=== PATIENT | female | born 1945 | race Caucasian/White ===

== ENCOUNTER 2022-12-09 19:05 | Emergency (ER) | payer MEDICARE, MEDICAID, SELFPAY ==
--- NOTE | ~2022-12-09 | CT_ITS ---
EXAMINATION: CT brain wo con DATE: 12/09/2022 19:53 INDICATION: Status post fall. TECHNIQUE: Computed tomography (CT) of the head was performed without intravenous contrast. The dose- length product was 1210.67 mGy-cm. Automated exposure control and iterative reconstruction technique were employed. COMPARISON: None FINDINGS: Study limited by motion artifact. Generalized atrophy. There are scattered mild periventric ular and subcortical white matter changes, most likely related to small vessel ischemic disease (micr oangiopathy). There are chronic right lacunar infarctions. There is intracranial atherosclerosis. No acute infarction, mass or mass effect. Paranasal sinuses and mastoids are pneumatized. IMPRESSION: 1. No acute intracranial abnormality. 2: Chronic right lacunar infarctions. 3: Chronic age-related findings. Reviewed, dictated and finalized at location A.
[2022-12-09 19:04] VITALS: PULSE 105; RESP 15; TEMP 36.9; O2SAT 96
--- NOTE | 2022-12-09 19:32 | ED.GENADULT ---
HPI - General Adult General Chief complaint: Fall Stated complaint: SLID OUT OF BED X 2 History of Present Illness HPI narrative: 77-year-old female presented emergency department for evaluation after having a fall from bed. Patient states that she slipped from bed but denies any pain or injury. Patient states did not strike her head had no loss of consciousness. Patient had been complaining to EMS that she was having buttock pain. On examination here patient denies any back or buttock pain and has no tenderness to palpation. Patient denies any current pain or injury. Patient is alert and oriented at her baseline. Review of Systems Review of Systems: All systems reviewed & are unremarkable except as noted in HPI and below Exam Narrative: APPEARANCE: Well appearing, no pain, no distress, well-nourished. HEAD: normocephalic, atraumatic. EYES: PERRLA/EOMI, conjunctivae clear. NECK: Supple. No adenopathy, no masses. RESPIRATORY: Airway patent, respirations nonlabored. Clear to auscultation bilaterally, no rales, rhonchi, wheezing. CARDIOVASCULAR: Regular rate and rhythm without murmurs rubs or gallops. ABDOMINAL: Soft, nontender, nondistended, normal bowel sounds MUSCULOSKELETAL: Moves all extremities. Strength/ROM intact, No edema, No calf tenderness. No midline back tenderness to palpation NEURO: Alert. Cranial nerves II through XII intact. Good gait. Good coordination SKIN: Warm, dry. Normal Color Course Course Emergency Course: 77-year-old female presented the ED for evaluation after having a ground-level fall. Patient denies any pain or complaint. Fall was unwitnessed. Head CT was ordered to evaluate for intracranial injury. Head CT was negative and showed no acute abnormality. Patient and care facility were updated on the results of the CT scan. Patient will be transferred back to her care facility. All questions concerns were addressed. Patient was resting comfortably at time of discharge. Vital Signs Vital signs: Vital Signs Temperature 98.5 F 12/09/22 19:04 Pulse Rate 105 H 12/09/22 19:04 Respiratory Rate 15 12/09/22 19:04 Pulse Oximetry 96 12/09/22 19:04 Oxygen Delivery Room Air 12/09/22 19:04 Temperature 98 F 12/09/22 20:23 Pulse Rate 89 12/09/22 20:23 Respiratory Rate 18 12/09/22 20:23 Blood Pressure 123/90 12/09/22 20:23 Pulse Oximetry 99 12/09/22 20:23 Oxygen Delivery Room Air 12/09/22 19:04 Medical Decision Making Vital Signs Vital Signs: Vital Signs Temperature 98.5 F 12/09/22 19:04 Pulse Rate 105 H 12/09/22 19:04 Respiratory Rate 15 12/09/22 19:04 Pulse Oximetry 96 12/09/22 19:04 Oxygen Delivery Room Air 12/09/22 19:04 Temperature 98 F 12/09/22 20:23 Pulse Rate 89 12/09/22 20:23 Respiratory Rate 18 12/09/22 20:23 Blood Pressure 123/90 12/09/22 20:23 Pulse Oximetry 99 12/09/22 20:23 Oxygen Delivery Room Air 12/09/22 19:04 Imaging Data Radiologist's impression: Impressions Head CT 12/09/22 19:54 IMPRESSION: 1. No acute intracranial abnormality. 2: Chronic right lacunar infarctions. 3: Chronic age-related findings. Discharge Plan Discharge Clinical Impression: Unwitnessed fall Patient Disposition: Home, Self-Care Condition: Stable Instructions: Antibiotic Form, Head Injury (ED) Additional Instructions: Have close follow-up with your primary care physician. If you have any worsening symptoms then please call or return to the emergency department. Follow-up/Referrals: Lincoln,MD Jeremi [Primary Care Provider] -
[2022-12-09 20:23] VITALS: BP 123/90; PULSE 89; RESP 18; TEMP 36.6; O2SAT 99
[2022-12-09 22:14] VITALS: BP 111/89; PULSE 70; RESP 18; TEMP 36.6; O2SAT 99
== END 2022-12-09 22:14 | disposition home or self-care (01) ==
PROVIDERS: Emergency Provider Emergency Medicine; PCP Internal Medicine
DX: Z04.3 Encounter for examination and observation following other accident (principal); W06.XXXA Fall from bed, initial encounter
CPT/HCPCS: 70450; 99284

== ENCOUNTER 2024-02-27 14:02 | Emergency (ER) | payer MEDICARE, MEDICAID, SELFPAY ==
--- NOTE | ~2024-02-27 | CT_ITS ---
EXAMINATION: CT thoracic lumbar wo con DATE: 02/27/2024 17:29 INDICATION: Back pain. TECHNIQUE: Computed tomography (CT) of the thoracic and lumbar spine was performed without intravenou s contrast. Automated exposure control and iterative reconstruction technique were employed. The dose -length product was 679.20 mGy-cm. COMPARISON: None FINDINGS: CT THORACIC SPINE: There is a 5 mm stone in left kidney. There is a 3.1 cm cyst in left kidney. There is 6 degrees dextrocurvature of thoracic spine. There is mild chronic anterior wedging of T5, T6, T7 , T8, T9, T10, and T11 vertebral bodies. There is multilevel decreased disc height, severe from T5-T6 through T9-T10. There is multilevel facet joint osteoarthritis, severe at multiple levels. There is multilevel mild neural foraminal stenosis bilaterally. On the right, there is moderate neural frontal stenosis at T9-T10. In the left, there is moderate neural foraminal stenosis at T9-T10. There is mil d central canal stenosis from T5-T6 through T12-L1. CT LUMBAR SPINE: There is 9 degrees dextrocurvature of lumbar spine. There is 4 mm anterolisthesis of L4 on L5 and 8 mm anterolisthesis of L5 on S1. Vertebral body heights are normal. There is mildly de creased disc height from L1-L2 through L3-L4, moderately decreased disc height at L4-L5, and severely decreased disc height at L5-S1. There are chronic bilateral L5 pars defects. The following disc leve ls are specifically discussed: L1-L2: The disc is bulging. There is severe bilateral facet joint osteoarthritis. There is mild bilat eral neural foraminal stenosis. There is mild central canal stenosis. L2-L3: The disc is bulging. There is severe right and moderate left facet joint osteoarthritis. There is mild right and moderate left neural foraminal stenosis. There is mild central canal stenosis. L3-L4: The disc is bulging. There is severe right and moderate left facet joint osteoarthritis. There is mild bilateral neural foraminal stenosis. There is mild central canal stenosis. L4-L5: The disc is bulging. There is severe bilateral facet joint osteoarthritis. There is moderate b ilateral neural foraminal stenosis. There is mild central canal stenosis. L5-S1: The disc is bulging. There is severe bilateral facet joint osteoarthritis. There is moderate b ilateral neural foraminal stenosis. There is mild central canal stenosis. IMPRESSION: 1. Chronic bilateral L5 pars defects with grade 1 anterolisthesis of L5 on S1. 2. Severe thoracic and lumbar spondylosis. Reviewed, dictated and finalized at location E.
--- NOTE | ~2024-02-27 | XR_ITS ---
EXAMINATION: XR shoulder RT min 2V DATE: 02/27/2024 17:44 INDICATION: Right shoulder pain. TECHNIQUE: 3 views of right shoulder were obtained. COMPARISON: None. FINDINGS: Bone alignment is normal. No fracture. There is mild osteoarthritis of glenohumeral joint a nd moderate osteoarthritis of acromioclavicular joint. IMPRESSION: 1. Polyarticular osteoarthritis. Reviewed, dictated and finalized at location E.
[2024-02-27 16:09] VITALS: BP 135/80; PULSE 60; RESP 20; TEMP 36.7; O2SAT 97
--- NOTE | 2024-02-27 17:12 | ED.EXTPRO ---
HPI - Extremity Problem General Chief complaint: Extremity Problem,Nontraumatic Stated complaint: R arm pain Time Seen by Provider: 02/27/24 17:01 History of Present Illness HPI Narrative: 8-year-old female presents to the emergency department via EMS from [facility] for shoulder pain. Per triage note, patient reports she noticed her right shoulder hurting after she slept on it. Upon my evaluation she is complaining of pain to her right shoulder and pain throughout her mid and low back. States this is new. She denies known injury or trauma. She believes her shoulder hurts from sleeping on it. She is a poor historian secondary to dementia. She is A&O x2. She denies saddle anesthesia, bowel or bladder incontinence, fever, other injuries or trauma. She denies recent fall. She is not anticoagulated. patient's right upper and lower eyelid also found to be erythematous. She is reporting discomfort to the lateral canthus. He denies vision changes or pain with EOMs. Related Data Allergies Allergy/AdvReac Type Severity Reaction Status Date / Time ampicillin Allergy Unknown Verified 02/27/24 16:15 Review of Systems Review of Systems: CONSTITUTIONAL: Denies fever, chills, or sweats. EYES: Denies visual changes, redness, or discharge. ENT: Denies rhinorrhea, congestion, sore throat, or otalgia. CARDIOVASCULAR: Denies chest pain, palpitations, or edema. RESPIRATORY: Denies cough or dyspnea. GASTROINTESTINAL: Denies abdominal pain, nausea, vomiting, or diarrhea. GENITOURINARY: Denies dysuria or hematuria. SKIN: Denies rash or itching. MUSCULOSKELETAL: See HPI NEUROLOGIC: Denies headache, numbness, or weakness. PSYCHIATRIC: Denies anxiety or depression. Exam Narrative: GENERAL: Well-appearing, well-nourished, and in no acute distress. HEAD: Normocephalic, atraumatic. EYES: PERRLA and EOMI. Erythema to the upper and lower right eyelids. No warmth. Conjunctiva mildly injected. No proptosis, no pain with EOMs. No vision changes ENT: Nares clear, no rhinorrhea or epistaxis. Mucous membranes moist. NECK: Supple. no midline cervical spinous tenderness, step-offs or deformities BACK: tenderness to the T8 region without overlying step-offs, crepitus or deformities. Minimal tenderness throughout the lumbar spine without crepitus, step-offs or deformities. CHEST: Clear to auscultation. No respiratory distress. HEART: Regular rate and rhythm. No murmur heard. Normal peripheral pulses. ABDOMEN: Soft, nontender, nondistended, normal active bowel sounds. EXTREMITIES: RUE: Generalized tenderness throughout the right shoulder without obvious deformity. Full active and passive range of motion, worsening pain with abduction and flexion. No overlying warmth or erythema. Radial pulse 2 +. Sensation intact. Axillary, median and radial nerves are intact. No tenderness remainder of upper or lower extremities. SKIN: Warm, dry, no rash. NEURO: No focal deficits. Alert and oriented x2. No saddle anesthesia. BLE strength 5/5 bilaterally including knee flexion and extension, hip flexion extension, dorsiflexion and extension. Sensation intact throughout. Moving all extremities spontaneously. Course Course Emergency Course: I contacted patient's [facility] and spoke to Will who states patient is at her baseline mental status which is A&O x2. States patient was sent here for a TIA workup. When I asked what the concern was for a TIA, Will stated that the patient has been complaining of R arm pain today and therefore not using her arm. Also states patient had eye issues, and when I asked further , she was relating to the redness to patient's eyelids. Will stated that the patient's daughter, Corinne, was concerned for a TIA. I contacted patient's daughter Corinne who states affirmed the above. Stated she wanted to ensure the patient was not having a TIA given she was not using her arm due to shoulder pain. I discussed that she was likely n
--- NOTE | 2024-02-27 17:23 | ECG_ITS ---
Test Date: 2024-02-27 18:00:52 Measurements Intervals [place] Rate: 59 P: 29 PA: 178 QRS: 15 QRSD: 126 T: -72 QT: 482 QTc: 479 Interpretive Statements SINUS BRADYCARDIA VENTRICULAR TRIGEMINY LEFT BUNDLE BRANCH BLOCK BASELINE ARTIFACT- I, II, III, AVR, AVL, AVF, V1-V6 ABNORMAL ECG No previous ECG available for comparison Electronically Signed On 02-29-2024 11:00:57 CDT by Basil Acosta D.O.
[2024-02-27 18:17] LABS: Basophils Percent Auto 0.5 % (0.2-1.2); Eosinophils Absolute Auto 0.1 K/mm3 (0-0.3); Eosinophils Percent Auto 1.3 % (0-4.4); Hemoglobin 13.8 g/dL (12.0-15.0); Immature Granulocyte Absolute 0.07 K/mm3 (0.00-0.031); Immature Granulocyte Percent A 0.8 % (0-0.5); Lymphocytes Absolute Auto 1.75 K/mm3 (0.9-3.2); Lymphocytes Percent Auto 21.2 % (18.3-44.2); Mean Corpuscular HGB Conc 33.7 g/dl (32-36); Mean Corpuscular Hemoglobin 29.6 pg (26-34); Mean Corpuscular Volume 87.8 fl (80-100); Mean Platelet Volume 11.4 fl (7.4-10.4); Monocytes Absolute Auto 0.7 K/mm3 (0.1-0.6); Monocytes Percent Auto 7.9 % (2.6-8.5); Neutrophils Absolute Auto 5.6 K/mm3 (1.3-6.7); Neutrophils Percent Auto 68.3 % (45.5-73.1); Platelet Count Result 288 k/mm3 (150-375); Red Blood Count 4.67 M/mm3 (4.2-5.4); Red Cell Distribution Width 13.2 % (11.5-14.5); White Blood Count 8.2 K/mm3 (4.5-10.0)
[2024-02-27] MEDS: ACETAMINOPHEN 325 MG TABLET 650 MG PO (18:21)
[2024-02-27 18:35] LABS: Appearance Urine Cloudy (Clear); Bacteria Urine None Seen /hpf; Bilirubin Urine Negative (Negative); Blood Urine Negative (Negative); Color Urine Dark Yellow (Yellow); Glucose Urine UA Negative (Negative); Ketones Urine Trace mg/dL (Negative); Leukocyte Esterase Ur 1+ LEU/UL (Negative); Need Manual Microscopic Reviewed; Nitrate Urine Negative (Negative); Protein Urine 1+ mg/dL (Negative); Squamous Epithelial Cell Urine None Seen /hpf (Few); pH Urine 5.5 (5.0-9.0)
[2024-02-27 18:36] LABS: Anion Gap 12 mmol/L (4-12); Blood Urea Nitrogen 14 mg/dL (7-17); Carbon Dioxide 22 mmol/L (22-30); Chloride 105 mmol/L (98-107); Estimated Glomerular Filt Rate > 60; Glucose 104 mg/dL (65-110); Potassium 3.2 mmol/L (3.4-5.0); Sodium 139 mmol/L (137-145)
[2024-02-27 18:40] LABS: Add Urine Microscopic? YES
[2024-02-27] MEDS: POTASSIUM CHLORIDE 20 MEQ PACKET (FOR LIQUID) 40 MEQ PO (18:44)
[2024-02-27 20:15] LABS: Troponin I < 0.012 ng/mL (0.000-0.034)
[2024-02-27 21:00] VITALS: BP 129/85; PULSE 71; RESP 19; O2SAT 98
--- NOTE | 2024-02-27 21:23 | PC.NURSE ---
gave report to ENZO Mcallitser at [facility] at 2104 and updated daughter of patient at 2109
== END 2024-02-27 23:10 ==
PROVIDERS: Emergency Provider Physician Assistant; PCP Internal Medicine
DX: M25.511 Pain in right shoulder (principal); H01.00A Unspecified blepharitis right eye, upper and lower eyelids; R82.998 Other abnormal findings in urine; F03.90 Unspecified dementia, unspecified severity, without behavioral disturbance, psychotic disturbance, mood disturbance, and anxiety
CPT/HCPCS: 36415; 72128; 72131; 73030; 80048; 81001; 83735; 84484; 85025; 87086; 93005; 99284; A9270

== ENCOUNTER 2024-06-22 16:10 | Emergency (ER) | payer MEDICARE, MEDICAID, SELFPAY ==
--- NOTE | ~2024-06-22 | CT_ITS ---
CT brain wo con Ordering provider: Hussain Miguel PA-C History: 79 years Female with . rule out bleed . Comparison: None. Technique: CT of the head without contrast. Radiation reduction technique utilized. The dose-length product was 2515.33 mGy-cm. FINDINGS: images are suboptimal to be appropriately evaluated due to motion artifacts.. BRAIN PARENCHYMA AND CSF SPACES: Mild leukoaraiosis and diffuse cortical atrophy. Mild atheromatous d isease. No gross hemorrhage is seen. VISUALIZED PARANASAL SINUSES: Well aerated. MASTOIDS: Well aerated. BONES: The visualized bones appear intact. SOFT TISSUES: Visualized nasopharynx is normal. Superficial soft tissues are normal. IMPRESSION: No gross acute intracranial hemorrhage. Reviewed, dictated and finalized at location A.
[2024-06-22 16:15] VITALS: BP 140/60; PULSE 68; RESP 17; TEMP 36.6; O2SAT 100
--- NOTE | 2024-06-22 18:17 | ED_ITS ---
HPI - Weakness General Chief complaint: Weakness Stated complaint: lethargy Time Seen by Provider: 06/22/24 18:06 Source: patient Mode of arrival: ambulatory Limitations: no limitations History of Present Illness HPI Narrative: This is an 79-year-old female who presents to the ED via EMS for complaints of lethargy from the [facility]. Reports she is normally alert oriented x1 and EMS states that this is her baseline. However the [facility] thought she was very tired, fatigued and lethargic especially after eating lunch today. Nursing staff reports that the [facility] was concerned for possible bug going around. Patient is unable to give me any reliable or meaningful history. However when I ask if she is in pain she says no. She does respond to her name and follows commands. Related Data Allergies Allergy/AdvReac Type Severity Reaction Status Date / Time ampicillin Allergy Unknown Verified 02/27/24 16:15 Review of Systems Review of Systems: All systems as dictated in HPI Exam Narrative: GENERAL: Well-appearing, well-nourished, and in no acute distress. HEAD: Normocephalic, atraumatic. EYES: PERRLA and EOMI. ENT: Nares clear, no rhinorrhea or epistaxis. Mucous membranes moist. Oropharynx without tonsillar hypertrophy exudate or other lesions. NECK: Supple. No adenopathy or masses. CHEST: No respiratory distress. Clear to auscultation. No wheezes rales or rhonchi HEART: Regular rate and rhythm. No murmur heard. Normal peripheral pulses. ABDOMEN: Soft, nontender, nondistended, normal active bowel sounds. MSK: Normal range of motion. No edema. SKIN: Warm, dry, no rash. NEURO: Alert and oriented x1. No focal deficits. Responds to her name. Follows basic commands. Moves all extremities spontaneously PSYCH: Normal mood and affect. Course Course Emergency Course: Spoke with family member, daughter Corinne. He does explain the patient is alert oriented x1 normally. It would appear that she is most likely at her mental status baseline from what she knows about the visit today. She does tell me that patient is DNR DNI. She is fine with patient being transferred back to [facility] as long as we do not find anything major today. Vital Signs Vital signs: Vital Signs Temperature 97.8 F 06/22/24 16:15 Pulse Rate 68 06/22/24 16:15 Respiratory Rate 17 06/22/24 16:15 Blood Pressure 140/60 06/22/24 16:15 Pulse Oximetry 100 06/22/24 16:15 Oxygen Delivery Room Air 06/22/24 16:15 Temperature 97.6 F 06/22/24 21:05 Pulse Rate 68 06/22/24 21:05 Respiratory Rate 20 06/22/24 21:05 Blood Pressure 141/75 H 06/22/24 21:05 Pulse Oximetry 100 06/22/24 21:05 Oxygen Delivery Room Air 06/22/24 16:15 MDM - Weakness MDM Narrative Medical decision making narrative: This is a 79 yo female who presents to the ED for chief complaint of fatigue, possible lethargy today. She is alert and oriented times wanted now her baseline. Vitals are normal. Exam remarkable for the above. No abdominal tenderness. No flank tenderness. No significant alteration in mentation. Was able to get in contact with family who do feel that she is probably at her baseline. Lab work shows mild hypokalemia and evidence of possible UTI. She is able to take medications by mouth. CT brain shows no acute findings. Rx for cephalexin given. She was given dose of antibiotics and potassium here. Family is good with patient being discharged back to [facility] today. Patient will be discharged in stable condition. Supportive measures discussed and return precautions given. Patient's family is understanding and agreeable with plan for discharge with PCP follow-up. Lab Data 06/22/24 18:53 06/22/24 18:53 Labs: Lab Results 06/22/24 06/22/24 Range/Units 18:53 19:26 WBC 7.5 (4.5-10.0) K/mm3 RBC 4.91 (4.2-5.4) M/mm3 Hgb 14.4 (12.0-15.0) g/dL Hct 42.1 (37.0-47.0) % MCV 85.7 (80-100) fl MCH 29.3 (26-34) pg MCHC 34.2 (32-36) g/dl RDW 13.3 (11.5-14.5) % Plt Count 239 (150-375) k/mm3 MPV 11.5 H (7.4-10.4) fl Immature Gran % (Auto) 0.1 (0-0.5) % Neut % (Auto) 69.6 (45.5-73.1) % Lymph % (Auto) 23.1 (18.3-44.2) % [place] % (Auto) 5.1 (2.6-8.5) % Eos % (Auto) 1.7 (0-4.4) % Baso % (Auto) 0.4 (0.2-1.2) % Lymph # (Auto) 1.72 (0.9-3.2) K/mm3 [place] # (Auto) 0.4 (0.1-0.6) K/mm3 Eos # (Auto) 0.1 (0-0.3) K/mm3 Baso # (Auto) 0.0 (0.0-0.1) K/mm3 Abs Immat Gran (auto) 0.01 (0.00-0.031) K/mm3 Absolute Neuts (auto) 5.2 (1.3-6.7) K/mm3 Absolute Nucleated RBC 0.000 (0.0-0.012) K/mm3 Nucleated RBC % 0.0 (0.0-0.2) % Sodium 140 (137-145) mmol/L Potassium 3.1 L (3.4-5.0) mmol/L Chloride 102 (98-107) mmol/L Carbon Dioxide 30 (22-30) mmol/L Anion Gap 8 (4-12) mmol/L BUN 11 (7-17) mg/dL Creatinine 0.70 (0.7-1.0) mg/dL Estim Creat Clear Calc Not Reportable Estimated GFR > 60 (59 - ) Glucose 85 (65-110) mg/dL Calcium 8.8 (8.4-10.2) mg/dL Total Bilirubin 1.3 (0.2-1.3) mg/dL AST 79 H (14-36) U/L ALT 61 H (6-35) U/L Alkaline Phosphatase 355 H (38-126) U/L Total Protein 8.0 (6.3-8.2) g/dL Albumin 4.0 (3.5-5.1) g/dL Urine Color Yellow (Yellow) Urine Appearance Turbid H (Clear) Urine pH 7.5 (5.0-9.0) Ur Specific [place] 1.011 (1.001-1.035) Urine Protein Negative (Negative) mg/dL Urine Glucose (UA) Negative (Negative) mg/dL Urine Ketones Trace H (Negative) mg/dL Ur Blood (Man) Negative (Negative) Urine Nitrate Negative (Negative) Urine Bilirubin Negative (Negative) Urine Urobilinogen 1.0 (<2.0) mg/dL Leukocyte Esterase Rfl 2+ H (Negative) YANET/UL Urine RBC 0-2 (0-2) /hpf Urine WBC 6-10 H (0-3) /hpf Ur Squamous Epith Cells None seen (Few) /hpf Urine Bacteria None seen /hpf Urine Casts 0-2 Discharge Plan Discharge Clinical Impression: Urinary tract infection [facility] Condition: Stable Instructions: Antibiotic Form Additional Instructions: Exam and workup today do show evidence of possible UTI. Potassium was slightly low as well. Please follow-up with PCP on these issues. Take antibiotics as prescribed. If you have any new or worsening symptoms please return to the ER for further evaluation. Prescriptions: New cephalexin 500 mg capsule 500 mg PO Q8H 7 Days Qty: 21 0RF No Action erythromycin 5 mg/gram (0.5 %) ointment 1 applic EACH EYE BID 7 Days Qty: 3.5 0RF acetaminophen 500 mg capsule 500 mg PO Q6H PRN (Reason: pain) Qty: 20 0RF Follow-up/Referrals: Lincoln,MD Jeremi [Primary Care Provider] - Stand Alone Forms: Jail Discharge Time of Disposition: 21:19
[2024-06-22 19:06] LABS: Basophils Percent Auto 0.4 % (0.2-1.2); Eosinophils Absolute Auto 0.1 K/mm3 (0-0.3); Eosinophils Percent Auto 1.7 % (0-4.4); Hematocrit 42.1 % (37.0-47.0); Hemoglobin 14.4 g/dL (12.0-15.0); Immature Granulocyte Absolute 0.01 K/mm3 (0.00-0.031); Immature Granulocyte Percent A 0.1 % (0-0.5); Lymphocytes Absolute Auto 1.72 K/mm3 (0.9-3.2); Lymphocytes Percent Auto 23.1 % (18.3-44.2); Mean Corpuscular HGB Conc 34.2 g/dl (32-36); Mean Corpuscular Hemoglobin 29.3 pg (26-34); Mean Corpuscular Volume 85.7 fl (80-100); Mean Platelet Volume 11.5 fl (7.4-10.4); Monocytes Absolute Auto 0.4 K/mm3 (0.1-0.6); Monocytes Percent Auto 5.1 % (2.6-8.5); Neutrophils Absolute Auto 5.2 K/mm3 (1.3-6.7); Neutrophils Percent Auto 69.6 % (45.5-73.1); Platelet Count Result 239 k/mm3 (150-375); Red Blood Count 4.91 M/mm3 (4.2-5.4); Red Cell Distribution Width 13.3 % (11.5-14.5); White Blood Count 7.5 K/mm3 (4.5-10.0)
[2024-06-22 19:59] LABS: Add Urine Microscopic? YES; Appearance Urine Turbid (Clear); Bacteria Urine None Seen /hpf; Bilirubin Urine Negative (Negative); Blood Urine Negative (Negative); Color Urine Yellow (Yellow); Glucose Urine UA Negative (Negative); Ketones Urine Trace mg/dL (Negative); Leukocyte Esterase Ur 2+ LEU/UL (Negative); Nitrate Urine Negative (Negative); Non Pathogenic Casts 0-2; Protein Urine Negative (Negative); RBC Urine 0-2 /hpf (0-2); Specific Grav Ur 1.011 (1.001-1.035); Squamous Epithelial Cell Urine None Seen /hpf (Few); pH Urine 7.5 (5.0-9.0)
[2024-06-22 20:23] LABS: Alanine Aminotransferase 61 U/L (6-35); Alkaline Phosphatase 355 U/L (38-126); Anion Gap 8 mmol/L (4-12); Aspartate Amino Transferase 79 U/L (14-36); Bilirubin,Total 1.3 mg/dL (0.2-1.3); Blood Urea Nitrogen 11 mg/dL (7-17); Calcium 8.8 mg/dL (8.4-10.2); Carbon Dioxide 30 mmol/L (22-30); Chloride 102 mmol/L (98-107); Estimated Glomerular Filt Rate > 60; Glucose 85 mg/dL (65-110); Potassium 3.1 mmol/L (3.4-5.0); Sodium 140 mmol/L (137-145)
[2024-06-22] MEDS: CEPHALEXIN 500 MG CAPSULE PO (21:01)
[2024-06-22] MEDS: POTASSIUM CHLORIDE 20 MEQ ER TABLET 40 MEQ PO (21:01)
[2024-06-22 21:05] VITALS: BP 141/75; PULSE 68; RESP 20; TEMP 36.4; O2SAT 100
[2024-06-22 22:10] VITALS: BP 116/56; PULSE 63; RESP 20; TEMP 36.6; O2SAT 96
== END 2024-06-22 22:50 ==
PROVIDERS: Emergency Provider Physician Assistant; PCP Internal Medicine
DX: N39.0 Urinary tract infection, site not specified (principal)
CPT/HCPCS: 36415; 70450; 80053; 81001; 85025; 87086; 99284; A9270

== ENCOUNTER 2024-12-15 13:17 | Emergency (ER) | payer MEDICARE, MEDICAID, SELFPAY ==
--- NOTE | ~2024-12-15 | XR_ITS ---
XR chest 1V portable Ordering provider: Toi Jj MD History: 79 years Female with . right sided breast mass . Comparison: None. FINDINGS: MEDIASTINUM: The cardiac silhouette is not enlarged. LUNGS: No infiltrates, effusions or pneumothorax. OTHER: No free air under the diaphragm. Degenerative changes of the spine. IMPRESSION: No acute cardiopulmonary pathology. Reviewed, dictated and finalized at location A.
--- NOTE | ~2024-12-15 | CT_ITS ---
CT diagnostic chest w con Ordering provider: Toi Jj MD History: 79 years Female with . right breast mass . Comparison: None. Technique: CT chest with IV contrast. Radiation reduction technique utilized.The dose-length product was 136.89 mGy-cm. 75 mL Omnipaque 350 was given IV. Findings: Right breast mass is seen measuring 4.8 x 6.4x 6.9 cm. Further evaluation is advised. VISUALIZED THORACIC INLET: Normal. MEDIASTINUM: Aorta/coronary arteries: Mild atheromatous disease. Heart/other: The heart is not enlarged. Lymph nodes: No mediastinal or hilar adenopathy. LUNGS: No pulmonary nodules or masses. No infiltrates or effusions. No pneumothorax. VISUALIZED UPPER ABDOMEN: Left parapelvic cyst is seen measuring 2.1 x 3.4 seen. Small matilde hepatis lymph nodes are seen with the largest measuring 1.1 cm. Otherwise, the visualized upper abdomen is no rmal. MUSCULOSKELETAL: Soft tissues: The superficial soft tissues are normal. Bones: Age appropriate degenerative changes of the spine. IMPRESSION: Right breast mass. Further evaluation advised. No acute cardiopulmonary pathology. Reviewed, dictated and finalized at location A.
[2024-12-15 13:15] VITALS: BP 125/98; PULSE 62; RESP 16; O2SAT 100
[2024-12-15 13:21] VITALS: TEMP 36.7
--- OUTSIDE RECORDS SUMMARY | 2024-12-15 13:44 | XMS_ITS | CONTINUITY OF CARE DOCUMENT ---
Author Name vincent kaur Address Unknown Organization [facility] Address [address] [place] [address] Phone [phone] Care Team Providers Care Hand Screen Printer Name Role Phone Philippe Castillo MD Unavailable [phone] SHIRLENE MATHEW, LORRIE Unavailable LORRIE GARBER MD Unavailable [phone] PROBLEMS Condition Status Date Provider Notes SHORTNESS OF BREATH-05/01 NUC NEG active ? Heath Grimes RN HTN-05/01 ECHO SAUCEDO DYS, MILD LAE-MARY PASP 45 EF 65 active ? Heath Grimes RN DIABETES MELLITUS active ? Philippe Castillo MD OBESITY active ? Philippe Castillo MD ENCOUNTERS Date Type Provider Location Encounter Diag nosis - In-person encounter Office Visit Philippe Castillo MD [place] [facility] - In-person encounter Office Visit Philippe Castillo MD [place] [facility] SHORTNESS OF BREATH-05/01 NUC NEGHTN-05/01 ECHO SAUCEDO DYS, MILD LAE-MARY PASP 45 EF 65DIABETES MELLITUSOBESITY VITAL SIGNS Date Observation Value Provider blood pressure, diastolic, left arm 80 mm [Hg] Olivia O'Kyle blood pressure, systolic, left arm 140 mm [Hg] Olivia O'Kyle blood pressure, diastolic, right arm 93 m m[Hg] Olivia O'Kyle blood pressure, systolic, right arm 137 m m[Hg] Olivia O'Kyle blood pressure, diastolic 93 mm[Hg] Ma rsha O'Kyle blood pressure, systolic 137 mm[Hg] Casandra brown O'Kyle pulse rate 68 /min Olivia O'Kyle oxygen saturation, oximetry 97 % Oliviacolby Forman respiratory rate E&M 18 /min Oliviacolby Forman weight E&M 168 [lb_av] Olivia FuentesKyle blood pressure, diastolic, left arm 79 mm [Hg] Heath Grimes RN blood pressure, systolic, left arm 122 mm [Hg] Heath Grimes RN blood pressure, diastolic, right arm 69 m m[Hg] Heath Grimes RN blood pressure, systolic, right arm 127 m m[Hg] Heath Grimes RN blood pressure, diastolic 79 mm[Hg] Carlin Grimes RN blood pressure, systolic 122 mm[Hg] Heath Grimes RN pulse rate 96 /min Heath Grimes RN oxygen saturation, oximetry 98 % Heath Grimes RN respiratory rate E&M 20 /min Heath ballesteros RN weight E&M 169 [lb_av] Heath Grimes RN ALLERGIES No Known Drug Allergies RESULTS Date Observation Value Provider Reference Range Interpretation Location microalbumin/total urine volume 77.6 mg/L Iza Byrne hemoglobin A1C, blood, as % of total hemoglobin 6.5 % Iza Byrne very low density lipoproteins 20 mg/dL Iza Byrne triglyceride, serum, fasting 98 mg/dL Iza Byrne HDL cholesterol, serum 51 mg/dL Iza Byrne LDL cholesterol, serum 157 mg/dL Iza Byrne cholesterol, serum 228 mg/dL Iza Byrne globulins, serum, total 3.6 g/dL Iza Byrne Estimated Glomerular Filtration Rate (calc) >59 Iza Byrne albumin/globulin ratio, serum 1.1 Iza Byrne protein, total, serum 7.7 g/dL Iza Byrne albumin, serum 4.1 g/dL Iza Byrne bilirubin, serum, total 0.6 mg/dL [facility] alkaline phosphatase, serum 123 1/L [facility] alanine aminotransferase (SGPT), serum 25 1/L [facility] aspartate aminotransferase (SGOT), serum 25 1/L [facility] calcium, serum 9.0 mg/dL [facility] blood glucose, fasting 96 mg/dL [facility] creatinine, serum 0.91 mg/dL [facility] urea nitrogen, blood 11 mg/dL [facility] carbon dioxide, serum, total 24 mmol/L [facility] chloride, serum 95 mmol/L [facility] potassium, serum 3.1 mmol/L [facility] sodium, serum 137 mmol/L [facility] HISTORY OF MEDICATION USE Medication Status Instructions Dates Provider Indications Com ments ASPIRIN 325 MG ORAL TABLET completed 1 tab daily - Olivia Forman LISINOPRIL 10 MG ORAL TABLET active ONE TAB. DAILY Yesica Zuniga HYDROCHLOROTHIAZIDE 25 MG ORAL TABLET completed ONE TAB DAILY - Olivia Rutherford'Kyle URSODIOL 500 MG ORAL TABLET active twice daily Heath Grimes RN SOCIAL HISTORY Date Observation Value Provider social history reviewed E&M reviewed Heath Grimes RN social history E&M Marital Statu s: L courtney alone E thnicity: Heath Grimes RN social history reviewed E&M reviewed Heath Grimes RN physical exercise, f requency, days per week yes [employer] alcohol use, average drinks per day none [employer] smoking status Non-smoker [employer] MENTAL STATUS Date Observation Value Provider assessment of judgme nt and insight E&M Alert and oriented to time, place and person. Mood and affect are normal. Heath Grimes RN assessment of judgme nt and insight E&M Alert and oriented to time, place and person. Mood and affect are normal. Heath Grimes RN INSURANCE PROVIDERS Payer name Policy type / Coverage type [employer] ID [place] [employer] Medicare [id number] TREATMENT PLAN Date Name Stress Test - Nuclea r Spirometry Complete Echo HISTORY OF PROCEDURES Procedure Date Procedure Name Provider Procedure Notes S tatus EKG Philippe Castillo MD completed
--- NOTE | 2024-12-15 13:46 | ED_ITS ---
HPI - General Adult General Chief complaint: Skin/Abscess/Foreign Body Stated complaint: right breast mass Time Seen by Provider: 12/15/24 13:18 History of Present Illness HPI narrative: 79-year-old female presented to the emergency department for evaluation for a right-sided breast mass. Family states the patient had a breast mass size of her thumb for extended period of time but was never checked out. detention states that the breast mass has acutely changed in size and is approximately the size of a tennis ball at this time. Patient is a poor historian but denies any pain and has no tenderness to the right breast. Related Data Allergies Allergy/AdvReac Type Severity Reaction Status Date / Time ampicillin Allergy Unknown Verified 02/27/24 16:15 Review of Systems 2 Review of Systems: All systems reviewed & are unremarkable except as noted in HPI and below Exam 2 Narrative: APPEARANCE: Well appearing, no pain, no distress, well-nourished. HEAD: normocephalic, atraumatic. EYES: PERRLA/EOMI, conjunctivae clear. NOSE: Normal no drainage EARS:TMS clear with good light reflex. THROAT: Pharynx clear, no exudate. Breast exam: Right-sided breast mass with no overlying skin changes, no overlying erythema or cellulitic skin changes NECK: Supple. No adenopathy, no masses. RESPIRATORY: Airway patent, respirations nonlabored. Clear to auscultation bilaterally, no rales, rhonchi, wheezing. CARDIOVASCULAR: Regular rate and rhythm without murmurs rubs or gallops. ABDOMINAL: Soft, nontender, nondistended, normal bowel sounds MUSCULOSKELETAL: Moves all extremities. Strength/ROM intact, No edema, No calf tenderness. NEURO: Alert. Cranial nerves II through XII intact. Good gait. Good coordination SKIN: Warm, dry. Normal Color Course Vital Signs Vital signs: Vital Signs Pulse Rate 62 12/15/24 13:15 Respiratory Rate 16 12/15/24 13:15 Blood Pressure 125/98 H 12/15/24 13:15 Pulse Oximetry 100 12/15/24 13:15 Oxygen Delivery Room Air 12/15/24 13:15 Temperature 98.1 F 12/15/24 13:21 Pulse Rate 66 12/15/24 15:56 Respiratory Rate 18 12/15/24 15:56 Blood Pressure 142/89 H 12/15/24 15:56 Pulse Oximetry 100 12/15/24 15:56 Oxygen Delivery Room Air 12/15/24 13:15 Medical Decision Making MDM Narrative Medical decision making narrative: 79-year-old female present to the emergency department for evaluation for right- sided breast mass. Patient has no tenderness to palpation of the mass. Mass is firm nonfluctuant with no overlying cellulitis or peau d'orange ultrasound was not available to be done emergency department. CT scan was ordered and showed breast mass, low concern for infectious etiology as the patient is afebrile with no leukocytosis and a normal CRP. Patient's ESR was mildly elevated, no acute changes to the patient's CMP. Attempted to reach the patient's primary care physician without success. Patient was provided outpatient follow-up with breast surgery. Do not feel this is an acute breast mass and patient will be suitable for outpatient follow-up. During the patient's entire stay in the emergency department she was in no distress and was well-appearing Differential Diagnosis Differential Diagnosis: Breast abscess, breast mass, cellulitis Vital Signs Vital Signs: Vital Signs Pulse Rate 62 12/15/24 13:15 Respiratory Rate 16 12/15/24 13:15 Blood Pressure 125/98 H 12/15/24 13:15 Pulse Oximetry 100 12/15/24 13:15 Oxygen Delivery Room Air 12/15/24 13:15 Temperature 98.1 F 12/15/24 13:21 Pulse Rate 66 12/15/24 15:56 Respiratory Rate 18 12/15/24 15:56 Blood Pressure 142/89 H 12/15/24 15:56 Pulse Oximetry 100 12/15/24 15:56 Oxygen Delivery Room Air 12/15/24 13:15 Lab Data Lab results reviewed: Yes I reviewed the patient's lab results. 12/15/24 14:34 12/15/24 14:34 Labs: Lab Results 12/15/24 Range/Units 14:34 WBC 5.3 (4.5-10.0) K/mm3 RBC 3.96 L (4.2-5.4) M/mm3 Hgb 11.1 L D (12.0-15.0) g/dL Hct 34.4 L (37.0-47.0) % MCV 86.9 (80-100) fl MCH 28.0 (26-34) pg MCHC 32.3 (32-36) g/dl RDW 13.7 (11.5-14.5) % Plt Count 238 (150-375) k/mm3 MPV 11.1 H (7.4-10.4) fl Immature Gran % (Auto) 0.4 (0-0.5) % Neut % (Auto) 68.8 (45.5-73.1) % Lymph % (Auto) 20.9 (18.3-44.2) % [place] % (Auto) 8.2 (2.6-8.5) % Eos % (Auto) 1.3 (0-4.4) % Baso % (Auto) 0.4 (0.2-1.2) % Lymph # (Auto) 1.10 (0.9-3.2) K/mm3 [place] # (Auto) 0.4 (0.1-0.6) K/mm3 Eos # (Auto) 0.1 (0-0.3) K/mm3 Baso # (Auto) 0.0 (0.0-0.1) K/mm3 Abs Immat Gran (auto) 0.02 (0.00-0.031) K/mm3 Absolute Neuts (auto) 3.6 (1.3-6.7) K/mm3 Absolute Nucleated RBC 0.000 (0.0-0.012) K/mm3 Nucleated RBC % 0.0 (0.0-0.2) % ESR 61 H (0-20) mm/hr Sodium 136 L (137-145) mmol/L Potassium 3.5 (3.4-5.0) mmol/L Chloride 102 (98-107) mmol/L Carbon Dioxide 30 (22-30) mmol/L Anion Gap 4 (4-12) mmol/L BUN 10 (7-17) mg/dL Creatinine 0.69 L (0.7-1.0) mg/dL Estim Creat Clear Calc Not Reportable Estimated GFR > 60 (59 - ) Glucose 101 (65-110) mg/dL Calcium 8.2 L (8.4-10.2) mg/dL Total Bilirubin 0.6 (0.2-1.3) mg/dL AST 61 H (14-36) U/L ALT 46 H (6-35) U/L Alkaline Phosphatase 291 H (38-126) U/L C-Reactive Protein 0.5 (<1.0) mg/dL Total Protein 7.0 (6.3-8.2) g/dL Albumin 3.4 L (3.5-5.1) g/dL Imaging Data Radiologist's impression: Impressions Chest X-Ray 12/15/24 14:08 IMPRESSION: No acute cardiopulmonary pathology. Chest CT 12/15/24 16:22 IMPRESSION: Right breast mass. Further evaluation advised. No acute cardiopulmonary pathology. Discharge Plan Discharge Clinical Impression: Breast mass, right Patient Disposition: NH Assisted/Asst Living Condition: Stable Instructions: Antibiotic Form, Breast Mass (ED) Additional Instructions: CT did show breast mass and this will need close outpatient follow-up. Patient Language: Indonesian Prescriptions: No Action erythromycin 5 mg/gram (0.5 %) ointment 1 applic EACH EYE BID 7 Days Qty: 3.5 0RF acetaminophen 500 mg capsule 500 mg PO Q6H PRN (Reason: pain) Qty: 20 0RF cephalexin 500 mg capsule 500 mg PO Q8H 7 Days Qty: 21 0RF Follow-up/Referrals: Ampadu,MD Jeremi [Primary Care Provider] - Tarah Sal MD [Physician] -
[2024-12-15 14:39] LABS: Basophils Percent Auto 0.4 % (0.2-1.2); Eosinophils Absolute Auto 0.1 K/mm3 (0-0.3); Eosinophils Percent Auto 1.3 % (0-4.4); Hematocrit 34.4 % (37.0-47.0); Hemoglobin 11.1 g/dL (12.0-15.0); Immature Granulocyte Absolute 0.02 K/mm3 (0.00-0.031); Immature Granulocyte Percent A 0.4 % (0-0.5); Lymphocytes Percent Auto 20.9 % (18.3-44.2); Mean Corpuscular HGB Conc 32.3 g/dl (32-36); Mean Corpuscular Volume 86.9 fl (80-100); Mean Platelet Volume 11.1 fl (7.4-10.4); Monocytes Absolute Auto 0.4 K/mm3 (0.1-0.6); Monocytes Percent Auto 8.2 % (2.6-8.5); Neutrophils Absolute Auto 3.6 K/mm3 (1.3-6.7); Neutrophils Percent Auto 68.8 % (45.5-73.1); Platelet Count Result 238 k/mm3 (150-375); Red Blood Count 3.96 M/mm3 (4.2-5.4); Red Cell Distribution Width 13.7 % (11.5-14.5); White Blood Count 5.3 K/mm3 (4.5-10.0)
[2024-12-15 14:53] LABS: Alanine Aminotransferase 46 U/L (6-35); Albumin Level 3.4 g/dL (3.5-5.1); Alkaline Phosphatase 291 U/L (38-126); Anion Gap 4 mmol/L (4-12); Aspartate Amino Transferase 61 U/L (14-36); Bilirubin,Total 0.6 mg/dL (0.2-1.3); Blood Urea Nitrogen 10 mg/dL (7-17); CRP 0.5 mg/dL (<1.0); Calcium 8.2 mg/dL (8.4-10.2); Carbon Dioxide 30 mmol/L (22-30); Chloride 102 mmol/L (98-107); Estimated Glomerular Filt Rate > 60; Glucose 101 mg/dL (65-110); Potassium 3.5 mmol/L (3.4-5.0); Sodium 136 mmol/L (137-145)
[2024-12-15 15:10] LABS: Erythrocyte Sedimentation Rate 61 mm/hr (0-20)
[2024-12-15 15:56] VITALS: BP 142/89; PULSE 66; RESP 18; O2SAT 100
--- NOTE | 2024-12-15 17:46 | PC.NURSE ---
Report called to Emilie, pt caregiver at [facility].
== END 2024-12-15 20:30 ==
PROVIDERS: Emergency Provider Emergency Medicine; PCP Internal Medicine
DX: N63.10 Unspecified lump in the right breast, unspecified quadrant (principal); R70.0 Elevated erythrocyte sedimentation rate
CPT/HCPCS: 36415; 71045; 71260; 80053; 85025; 85652; 86140; 99284; Q9967

== ENCOUNTER 2025-05-04 20:32 | Emergency (ER) | payer MEDICARE, MEDICAID, SELFPAY ==
--- NOTE | ~2025-05-04 | CT_ITS ---
EXAMINATION: CT cervical spine wo con COMPARISON: None HISTORY: head injury, trauma TECHNIQUE: Axial images were obtained through the spine without IV contrast. Coronal, sagittal reconstruction images were obtained from the axial views. CT scan performed using dose optimization techniques including the following automated exposure control; adjustment of mA and/or kV; use of iterative reconstruction technique. Automatic exposure control was used to reduce radiation dose. Permanent radiation dose record is archived to PACS. FINDINGS: Grade 1 anterolisthesis of C3 on C4 and C6 on C7, no fracture is identified. Moderate loss of disc height at C4-5 C5-6 with moderate to severe canal and foraminal stenosis, outpatient MRI recommended Soft tissues unremarkable. Impression: No acute abnormality. Reviewed, dictated and finalized at location A. Impression: No acute abnormality.
--- NOTE | ~2025-05-04 | CT_ITS ---
EXAMINATION: CT brain wo angela, 05/04/2025 22:11 CDT HISTORY: head injury, trauma COMPARISON: No comparisons available. Technique: Axial images obtained of the brain without contrast. One or more of the following dose reduction techniques were used: automated exposure control, adjustment of the mA and/or kV according to patient size, use of iterative reconstruction technique. Findings: No acute infarct or parenchymal hemorrhage. No abnormal mass or mass effect. No midline shift. No extra-axial fluid collections. No hydrocephalus. Mastoid air cells unremarkable. Sinuses and orbits unremarkable. No acute fracture. No significant facial or scalp soft tissue swelling evident. No radiopaque foreign body is seen. Impression: 1.No acute intracranial abnormality. Reviewed, dictated and finalized at location A. Impression: 1.No acute intracranial abnormality.
[2025-05-04 20:34] VITALS: BP 124/58; PULSE 86; RESP 17; TEMP 36.3; O2SAT 99
[2025-05-04 22:00] VITALS: BP 146/81; PULSE 85; RESP 24; O2SAT 100
--- NOTE | 2025-05-04 22:25 | PC.NURSE ---
[facility]acy recalled for DNR/Hospice paperwork. They said they faxed it after initial call at [phone] but they will refax to [phone]
[2025-05-04 23:03] VITALS: BP 125/69; PULSE 88; RESP 16; O2SAT 99
--- NOTE | 2025-05-04 23:18 | ED_ITS ---
HPI - Fall General Chief Complaint: Fall Stated Complaint: FALL Time Seen by Provider: 05/04/25 22:13 Source: patient, EMS, RN notes reviewed and old records reviewed Mode of arrival: EMS Limitations: dementia History of Present Illness HPI Narrative: Patient is an 79-year-old female, with past medical history of dementia, CVA, who presents the ED via EMS with report of a fall. Patient is alert oriented x1 upon my evaluation, which is her baseline. She is currently on hospice care at [facility]. Per halfway report, patient reportedly had a fall around 7:00 p.m. tonight. This was unwitnessed. Unknown head injury. No obvious signs of trauma. Sent here for further evaluation. Patient denies any current areas of pain. She is not on anticoagulation. Related Data Allergies Allergy/AdvReac Type Severity Reaction Status Date / Time ampicillin Allergy Unknown Verified 02/27/24 16:15 Review of Systems Review of Systems: All systems reviewed & are unremarkable except as noted in HPI. All systems reviewed & are unremarkable except as noted in HPI and below Exam Narrative: GENERAL: Elderly, frail/then, non-toxic, in no acute distress. HEAD: Normocephalic, atraumatic. RESPIRATORY: Airway patent, respirations nonlabored. Clear to auscultation bilaterally, no rales, rhonchi, wheezing. CARDIOVASCULAR: Regular rate and rhythm MUSCULOSKELETAL: Moves all extremities. No gross deformities. SKIN: Warm, dry, normal color. NEURO: A&O X1, answer some questions. Follows commands. Speech clear. No ataxic movements. No gross focal deficits, able to move all extremities equally. PSYCHIATRIC: Pleasant. Normal interaction. Course Vital Signs Vital signs: Vital Signs Temperature 97.4 F L 05/04/25 20:34 Pulse Rate 86 05/04/25 20:34 Respiratory Rate 17 05/04/25 20:34 Blood Pressure 124/58 L 05/04/25 20:34 Pulse Oximetry 99 05/04/25 20:34 Oxygen Delivery Room Air 05/04/25 20:34 Temperature 97.4 F L 05/04/25 20:34 Pulse Rate 91 05/04/25 23:43 Respiratory Rate 21 H 05/04/25 23:43 Blood Pressure 125/69 05/04/25 23:43 Pulse Oximetry 95 05/04/25 23:43 Oxygen Delivery Room Air 05/04/25 20:34 MDM - Fall MDM Narrative Medical decision making narrative: CT brain and cervical spine were obtained and negative for traumatic findings. Patient continues to deny any complaints. Vital signs are stable. No gross focal deficits on exam. Patient on hospice care. Safe for discharge back to halfway to continue hospice care. Given return precautions. Medical Records Attestation: I reviewed the patient's medical records. Imaging Data Attestation: I personally reviewed and interpreted this imaging study as follows: Radiologist's impression: STAT RAD CT brain: Impression: Mild cerebral atrophy and periventricular white matter low-density consistent with chronic small-vessel disease and/or senescent changes, unchanged. No acute large vessel infarct or intracranial hemorrhage is identified. Paranasal sinuses and mastoid air cells are normal. No skull fracture or significant scalp hematoma is identified. No incidental findings. STAT RAD CT cervical spine: Impression: Moderate narrowing and osteophytosis of the atlantodental joint. The odontoid process is intact. Poaw-ne-hwjovopg multilevel degenerative disc disease and facet arthrosis throughout the cervical spine. There is slight straightening of the normal cervical curvature suggesting spasm. No acute fracture or subluxation is seen. Axial soft tissue imaging shows significant findings at the fall levels: C3-4: 2 mm broad-based posterior disc herniation narrows the thecal sac to 7 mm. C4-5: 3 mm broad-based posterior disc herniation narrows the thecal sac to 7 mm. C5-6: 2-3 mm posterior disc herniation and disc marginal osteophyte narrows the thecal sac to 6 mm. There is moderate right neural foraminal narrowing. Moderate calcification in the carotid bifurcation bilaterally. Neck soft tissues are otherwise unremarkable. The lung apices are clear. No incidental findings. Discharge Plan Discharge Clinical Impression: Fall from ground level Closed head injury Qualifiers: Encounter type: initial encounter Qualified Code(s): S09.90XA - Unspecified injury of head, initial encounter Patient Disposition: Hospice - Home Condition: Stable Instructions: Head Injury (ED) Additional Instructions: Patient's imaging did not show any evidence of traumatic findings. Continue to follow-up with hospice care. Tylenol, ice as needed for pain. Return for new or worsening concerns. Patient Language: Tamazight Prescriptions: No Action erythromycin 5 mg/gram (0.5 %) ointment 1 applic EACH EYE BID 7 Days Qty: 3.5 0RF acetaminophen 500 mg capsule 500 mg PO Q6H PRN (Reason: pain) Qty: 20 0RF cephalexin 500 mg capsule 500 mg PO Q8H 7 Days Qty: 21 0RF Follow-up/Referrals: Lincoln,MD Jeremi [Primary Care Provider, Unknown] Time of Disposition: 23:21
--- NOTE | 2025-05-04 23:28 | PC.NURSE ---
Report to Paola SAINI at [facility] regarding discharge and transport back to facility
[2025-05-04 23:43] VITALS: BP 125/69; PULSE 91; RESP 21; O2SAT 95
== END 2025-05-05 00:24 | disposition hospice, home (50) ==
PROVIDERS: Emergency Provider Physician Assistant; PCP Internal Medicine
DX: S09.90XA Unspecified injury of head, initial encounter (principal); F03.90 Unspecified dementia, unspecified severity, without behavioral disturbance, psychotic disturbance, mood disturbance, and anxiety; Z86.73 Personal history of transient ischemic attack (TIA), and cerebral infarction without residual deficits; W19.XXXA Unspecified fall, initial encounter
CPT/HCPCS: 70450; 72125; 99284